=== PATIENT | female | born 1985 ===

== ENCOUNTER 2023-11-27 10:57 | Day surgery (SDC) | payer OTHER ==
[~2023-11-27] VITALS: Ht 165.1 cm; Wt 83.9 kg
[~2023-11-27 10:57] MED LIST: VERELAN PM100 MG PO; VOLTAREN ARTHRI20 GM
[2023-11-27] MEDS ORDERED: SUGAMMADEX SODIUM 200 MG/2 ML VIAL IV ONE (16:30)
[2023-11-27] MEDS ORDERED: BUPIVACAINE HCL 30 ML VIAL IJ ONE (16:30)
[2023-11-27] MEDS ORDERED: CLINDAMYCIN PHOSPHATE 150 MG/ML (900mg) IV ONE (16:30)
[2023-11-27] MEDS ORDERED: LIDOCAINE HCL 1%/EPINEPHRINE 20ML VIAL IJ ONE (16:30)
[2023-11-27] MEDS ORDERED: KETOROLAC TROMETHAMINE 30 MG VIAL IM ONE (16:30)
[2023-11-27] MEDS ORDERED: KETOROLAC TROMETHAMINE 30 MG VIAL IV ONE (16:30)
[2023-11-27] MEDS ORDERED: MORPHINE SULFATE 4 MG/ML VIAL IV ONE ×2 (16:50→17:30)
== END 2023-11-27 18:40 | disposition home or self-care (01) ==
LOC: CIR.AMB 10:57
PROVIDERS: ATTEND Orthopaedic Surgery
DX: S46.211A Strain of muscle, fascia and tendon of other parts of biceps, right arm, initial encounter (principal); I10 Essential (primary) hypertension; Z88.0 Allergy status to penicillin